=== PATIENT | female | born 1980 | race African-American/Black ===

== ENCOUNTER 2017-09-25 15:22 | Emergency (ER) | payer OTHER ==
[~2017-09-25] VITALS: Ht 160 cm; Wt 117.0 kg
[2017-09-25] MEDS ORDERED: MOBIC7.5 MG PO (16:39)
[2017-09-25 17:05] VITALS: BP 145/100
== END 2017-09-25 17:05 | disposition home or self-care (01) ==
LOC: ER 15:22
DX: M79.602 Pain in left arm (principal); M25.532 Pain in left wrist; M25.512 Pain in left shoulder; F17.210 Nicotine dependence, cigarettes, uncomplicated; I10 Essential (primary) hypertension